=== PATIENT | female | born 1985 | race Hispanic/Latino ===

== ENCOUNTER 2021-09-08 14:17 | Inpatient (IN) | payer MEDICAID, OTHER, SELFPAY ==
[2021-09-08] MEDS ORDERED: HYDROcodone/Acetaminophen 5/325 mg Tablet PO PRN (15:46)
[2021-09-08] MEDS ORDERED: Promethazine HCl 25 MG/ML VIAL IM PRN ×2 (15:46→20:44)
[2021-09-08] MEDS ORDERED: Lidocaine 1% (PF) 30 ML VIAL SC PRN (15:46)
[2021-09-08] MEDS ORDERED: Ibuprofen 800 MG TAB PO PRN (15:46)
[2021-09-08] MEDS ORDERED: Ondansetron PF 4 MG/2 ML Vial IVP PRN ×2 (15:46→20:44)
[2021-09-08] MEDS ORDERED: hydrALAZINE 20 MG/ML VIAL SLOW IVP PRN (15:46)
[2021-09-08] MEDS ORDERED: Acetaminophen 500 MG TAB PO PRN (15:46)
[2021-09-08 15:53] VITALS: BMI 25.6
[2021-09-08] MEDS ORDERED: NS w/ Oxytocin 30 units 500 ML IV SCH (16:00)
[2021-09-08] MEDS ORDERED: Lactated Ringer's 1,000 ML IV SCH ×2 (16:00)
[2021-09-08 16:55] LABS: Hemoglobin 10.2 g/dL (12.0-15.5); Mean Corpuscular HGB CONC 32.1 g/dL (32.0-36.0); Mean Corpuscular Hemoglobin 29.6 pg (27.0-33.0); Mean Corpuscular Volume 92.2 fl (81.6-98.3); Platelet Count 228 10x3/uL (150-450); RBC Distribution Width 13.1 % (11.5-14.5); Red Blood Cell (RBC) Count 3.45 10x6/uL (3.90-5.03); White Blood Cell (WBC) Count 11.8 10x3/uL (3.5-10.5)
[2021-09-08] MEDS ORDERED: Penicillin G Potassium 5 MILL.UNITS VIAL ONE (17:12)
[2021-09-08] MEDS ORDERED: Penicillin G Potassium 5 MILL.UNITS in Sodium Chloride 0.9% 100 ML IVPB SCH (17:15)
[2021-09-08 17:28] LABS: Hep B Surf Ag Non-Reactive S/CO (NonReactive)
[2021-09-08 17:29] LABS: Syphilis Antibody Nonreactive (Nonreactive); Syphilis Antibody Index 0.03 S/CO (<1.00 Non-Reactive)
[2021-09-08 17:30] LABS: HBSAg Index 0.19 S/CO (0-0.99)
[2021-09-08 18:28] LABS: SARS-CoV-2 NAA Rapid Test Not Detected (NotDetected)
[2021-09-08] MEDS ORDERED: Fentanyl 2 mcg/Bup 0.1% Cadd 100 ML ONE (20:07)
[2021-09-08] MEDS ORDERED: ePHEDrine Sulfate 50 MG/10 ML VIAL SLOW IVP PRN (20:44)
[2021-09-08] MEDS ORDERED: diphenhydrAMINE 50 MG/ML VIAL IVP PRN (20:44)
[2021-09-08] MEDS ORDERED: Naloxone HCl 0.4 mg/ml Vial IVP PRN ×2 (20:44)
[2021-09-08] MEDS ORDERED: Acetaminophen 325 MG TAB PO PRN (20:44)
[2021-09-08] MEDS ORDERED: Hydrocerin (Eucerin) Cream 120 gm Jar TOP PRN (20:44)
[2021-09-08] MEDS ORDERED: Lactated Ringer's 500 ML IV PRN (20:44)
[2021-09-08] MEDS ORDERED: Fentanyl 2 mcg/Bupivacaine 0.1% Cassette 100 ML EPIDURAL SCH (20:45)
[2021-09-08] MEDS ORDERED: Communication Order-Pharmacy FS SCH (20:45)
[2021-09-08] MEDS: Penicillin G 2.5 MILL.units 2.5 MILL.UNITS in Premix Bag 1 BAG IVPB SCH (21:06)
[2021-09-09] MEDS ORDERED: hydrALAZINE 20 MG/ML VIAL SLOW IVP PRN (02:35)
[2021-09-09] MEDS ORDERED: Boostrix 0.5 ML (Tdap) VIAL IM ONE (02:35)
[2021-09-09] MEDS ORDERED: NS w/ Oxytocin 30 units 500 ML IV PRN (02:35)
[2021-09-09] MEDS ORDERED: HYDROcodone/Acetaminophen 5/325 mg Tablet PO PRN (02:35)
[2021-09-09] MEDS ORDERED: Methylergonovine 0.2 MG/ML VIAL IM PRN (02:35)
[2021-09-09] MEDS ORDERED: Bisacodyl 10 MG SUPP PR PRN (02:35)
[2021-09-09] MEDS ORDERED: Milk Of Magnesia 30 ML UDCUP PO PRN (02:35)
[2021-09-09] MEDS ORDERED: Misoprostol 200 MCG TAB VAG PRN (02:35)
[2021-09-09] MEDS: Penicillin G 2.5 MILL.units 2.5 MILL.UNITS in Premix Bag 1 BAG IVPB SCH (03:35)
[2021-09-09] MEDS: Ibuprofen 800 MG TAB PO SCH ×3 (05:46→21:13)
[2021-09-09] MEDS: Docusate Calcium (SURFAK) 240 MG CAP PO SCH ×2 (09:40→21:13)
[2021-09-09] MEDS: Ferrous Sulfate 325 MG TAB PO SCH ×2 (09:40→15:35)
[2021-09-10] MEDS: Ibuprofen 800 MG TAB PO SCH (05:15)
[2021-09-10 07:53] VITALS: BP 122/86; TEMP 98
[2021-09-10] MEDS: Ferrous Sulfate 325 MG TAB PO SCH (08:26)
[2021-09-10] MEDS: Docusate Calcium (SURFAK) 240 MG CAP PO SCH (08:29)
[2021-09-10] MEDS ORDERED: PROPOFOL 40 ML ONE (12:52)
[2021-09-10] MEDS ORDERED: Fentanyl 100 MCG/2 ML VIAL ONE (12:52)
[2021-09-10] MEDS ORDERED: Lidocaine 1% PF 5 ML VIAL ONE ×3 (12:54→12:55)
[2021-09-10] MEDS ORDERED: Ondansetron PF 4 MG/2 ML Vial ONE (12:55)
[2021-09-10] MEDS ORDERED: Dexamethasone 4 mg/ml Vial ONE (12:56)
== END 2021-09-10 14:00 | disposition home or self-care (01) | DRG 807 ==
LOC: CSHLD/OP 14:17 → CSHLD 14:51 → CSHPP 09-09 02:14
PROVIDERS: ADMIT Obstetrics & Gynecology; ATTEND Obstetrics & Gynecology
PROC: 10E0XZZ Delivery of Products of Conception, External Approach (ICD-10-PCS; principal; 2021-09-08)
DX: O99.824 Streptococcus B carrier state complicating childbirth (principal); Z37.0 Single live birth; Z20.822 Contact with and (suspected) exposure to COVID-19; Z3A.40 40 weeks gestation of pregnancy
CPT/HCPCS: 36415; 51702; 85027; 86780; 86850; 86900; 86901; 87340; 99285; J1100; J2405; J2540; J2704; J3010; U0002

== ENCOUNTER 2025-08-06 19:00 | Inpatient (IN) | payer MEDICAID, OTHER ==
[2025-08-06] MEDS ORDERED: Diphenoxylate HCl/Atropine Tablet PO PRN (22:55)
[2025-08-06] MEDS ORDERED: Methylergonovine 0.2 MG/ML VIAL IM PRN (22:55)
[2025-08-06] MEDS ORDERED: Acetaminophen 500 MG TAB PO PRN (22:55)
[2025-08-06] MEDS ORDERED: Tranexamic Acid 1,000 MG/10 ML VIAL IVP PRN (22:55)
[2025-08-06] MEDS ORDERED: HYDROcodone/Acetaminophen 5/325 mg Tablet PO PRN (22:55)
[2025-08-06] MEDS ORDERED: Lidocaine 1% (PF) 30 ML VIAL SC PRN (22:55)
[2025-08-06] MEDS ORDERED: Ibuprofen 800 MG TAB PO PRN (22:55)
[2025-08-06] MEDS ORDERED: hydrALAZINE 20 MG/ML VIAL SLOW IVP PRN (22:55)
[2025-08-06] MEDS ORDERED: Carboprost 250 MCG/ML AMP IM PRN (22:55)
[2025-08-06] MEDS ORDERED: Oxytocin 30 units/NS 500 ML 500 ML IV SCH (23:00)
[2025-08-06 23:32] VITALS: BMI 32.0
[2025-08-06 23:47] LABS: Hematocrit 30.3 % (34.9-44.5); Hemoglobin 10.2 g/dL (12.0-15.5); Mean Corpuscular Hemoglobin 31.4 pg (27.0-33.0); Mean Corpuscular Volume 93.2 fL (81.6-98.3); Platelet Count 229 10x3/uL (150-450); Red Blood Cell (RBC) Count 3.25 10x6/uL (3.90-5.03); White Blood Cell (WBC) Count 11.63 10x3/uL (3.5-10.5)
[2025-08-07 00:21] LABS: Hep B Surf Ag - L&D Non-Reactive S/CO (NonReactive)
[2025-08-07 00:42] LABS: Syphilis Antibody Index 0.07 S/CO (<1.00 Non-Reactive)
[2025-08-07] MEDS: Penicillin G Potassium 5 MILL.UNITS in Sodium Chloride 0.9% 100 ML IVPB SCH (00:59)
[2025-08-07 01:25] LABS: Cocaine Metabolite Screen Negative (Negative); THC/Cannabinoid Screen Negative (Negative); Tricyclic Screen Negative (Negative)
[2025-08-07] MEDS: Penicillin G 2.5 MILL.units 2.5 MILL.UNITS in Premix 1 BAG IVPB SCH (05:02)
[2025-08-07] MEDS: Oxytocin 30 units/NS 500 ML 500 ML IV SCH (05:02)
[2025-08-07] MEDS: fentaNYL/Ropivacaine Epidural 100 ML ONE (09:11)
[2025-08-07] MEDS ORDERED: Ondansetron PF 4 MG/2 ML Vial IVP PRN ×4 (10:24→21:06)
[2025-08-07] MEDS ORDERED: diphenhydrAMINE 50 MG/ML VIAL IVP PRN ×2 (10:24→16:40)
[2025-08-07] MEDS ORDERED: Acetaminophen 325 MG TAB PO PRN (10:24)
[2025-08-07] MEDS ORDERED: fentaNYL 2 mcg/Ropivacaine 0.2% Epidural 100 ML CADD EPIDURAL SCH (10:30)
[2025-08-07] MEDS ORDERED: Communication Order-Pharmacy FS SCH ×2 (10:30→16:45)
[2025-08-07] MEDS: Azithromycin 500 MG VIAL ONE (16:17)
[2025-08-07] MEDS: CEFAZOLIN 2 GM VIAL ONE (16:17)
[2025-08-07] MEDS ORDERED: Meperidine HCl/PF 25 MG (1 mL) VIAL SLOW IVP PRN (16:40)
[2025-08-07] MEDS ORDERED: Ketorolac Tromethamine 30 MG (1 mL) VIAL IVP PRN (16:40)
[2025-08-07] MEDS ORDERED: Ketorolac Tromethamine 30 MG (1 mL) VIAL IVP SCH (16:45)
[2025-08-07] MEDS: Ondansetron PF 4 MG/2 ML Vial IVP PRN (19:21)
[2025-08-07] MEDS ORDERED: hydrALAZINE 20 MG/ML VIAL SLOW IVP PRN (21:06)
[2025-08-07] MEDS ORDERED: diphenhydrAMINE 25 MG CAP PO PRN (21:06)
[2025-08-07] MEDS ORDERED: Lanolin Ointment 7 GM TUBE TOP PRN (21:06)
[2025-08-07] MEDS: Oxytocin 10 UNITS/ML VIAL ONE (23:16)
[2025-08-07] MEDS: Ondansetron PF 4 MG/2 ML Vial ONE (23:16)
[2025-08-07] MEDS: PHENYLEPHRINE-NS 100 MCG/ML 10 ML SYRINGE ONE (23:16)
[2025-08-07] MEDS: Lidocaine 2% MPF 10 ML AMP (For Epidural Use) ONE (23:16)
[2025-08-07] MEDS: Ketorolac Tromethamine 30 MG (1 mL) VIAL IVP SCH (23:24)
[2025-08-08 04:09] LABS: Hematocrit 27.0 % (34.9-44.5); Hemoglobin 9.1 g/dL (12.0-15.5); Mean Corpuscular Hemoglobin 31.3 pg (27.0-33.0); Mean Corpuscular Volume 92.8 fL (81.6-98.3); Platelet Count 209 10x3/uL (150-450); Red Blood Cell (RBC) Count 2.91 10x6/uL (3.90-5.03); White Blood Cell (WBC) Count 13.02 10x3/uL (3.5-10.5)
[2025-08-08] MEDS: HYDROcodone/Acetaminophen 5/325 mg Tablet PO PRN ×2 (04:37→08:39)
[2025-08-08] MEDS ORDERED: Meperidine HCl/PF 25 MG (1 mL) VIAL IM PRN (04:45)
[2025-08-08] MEDS: PROPOFOL 20 ML ONE (07:38)
[2025-08-08] MEDS: Ketorolac Tromethamine 30 MG (1 mL) VIAL ONE ×2 (07:38)
[2025-08-08] MEDS: Boostrix 0.5 ML (Tdap) VIAL (>/=7 yrs of age) IM ONE (07:38)
[2025-08-08] MEDS: Ferrous Sulfate 325 MG TAB PO SCH ×2 (07:39→08:12)
[2025-08-08] MEDS: Simethicone Chewable 80 MG TAB PO PRN (12:07)
[2025-08-08] MEDS: Ibuprofen 800 MG TAB PO SCH (21:04)
[2025-08-09] MEDS: Bisacodyl 10 MG SUPP PR PRN (08:13)
[2025-08-10 10:11] VITALS: BP 117/58; TEMP 98
== END 2025-08-10 17:00 | disposition home or self-care (01) | DRG 788 ==
LOC: CSHLD 22:24 → CSHPP 08-07 19:54
PROVIDERS: ADMIT Family Medicine; ATTEND Family Medicine
PROC: 10D00Z1 Extraction of Products of Conception, Low, Open Approach (ICD-10-PCS; principal; 2025-08-06)
DX: O48.0 Post-term pregnancy (principal); Z37.0 Single live birth; Z79.899 Other long term (current) drug therapy; Z3A.40 40 weeks gestation of pregnancy
CPT/HCPCS: 36415; 51702; 80306; 85027; 86780; 86850; 86900; 86901; 87340; C1889; J0456; J1885; J2250; J2540; J2590; J2704; J7120